=== PATIENT | male | born 1995 | race Caucasian/White ===

== ENCOUNTER 2017-03-14 14:54 | Emergency (ER) | payer BC, OTHER ==
[2017-03-14 15:28] VITALS: BP 136/61
--- NOTE | 2017-03-14 15:58 | EDM.PDOC ---
ED HPI GENERAL MEDICAL PROBLEM - General Chief Complaint: General Stated Complaint: INHALE CHEMICALS Time Seen by Provider: 03/14/17 15:53 Source of Information: Reports: Patient History Limitations: Reports: No Limitations - History of Present Illness INITIAL COMMENTS - FREE TEXT/NARRATIVE: HISTORY AND PHYSICAL: [] 21-year-old male presents to ER after having an exposed to hydrochloric acid History of Present Illness: []Poison control has been notified chest x-ray supported cares were recommended Has some burning sensation to his nose, is improved while waiting to be seen Review of Systems: As per history of present illness and below otherwise all systems reviewed and negative. Past medical history: As per history of present illness and as reviewed below otherwise noncontributory. Surgical history: As per history of present illness and as reviewed below otherwise noncontributory. Social history: No reported history of drug or alcohol abuse. Family history: As per history of present illness and as reviewed below otherwise noncontributory. Physical exam: HEENT: Atraumatic, normocehpalic, pupils reactive, negative for conjunctival pallor or scleral icterus, mucous membranes moist, throat clear, neck supple, nontender, trachea midline. Lungs: Clear to auscultation, breath sounds equal bilaterally, chest non tender. Heart: S1S2, regular, negative for clicks, rubs, or JVD. Abdomen: Soft, nondistended, nontender. Negative for masses or hepatossplenmegaly. Negative for costovertebral tenderness. Pelvis: Stable nontender. Genitourinary: Deferred. Rectal: Deferred Extremities: Atraumatic, negative for cords or calf pain. Neurovascular unremarkable. Neuro: Awake, alert, oriented. Cranial nerves II through XII unremarkable. Cerebellum unremarkable. Motor and sensory unremarkable throughout. Exam nonfocal. Discussed with the patient his x-ray that is clear no pneumonia and no signs of any infiltrates or excess fluid Diagnostics: [Chest x-ray clear ] Therapeutics: [] Impression: [Chemical exposure] Plan: [Discharged to home Follow up with your primary care provider Any adverse reaction occurs return immediately for reevaluation] Definitive disposition and diagnosis as appropriate pending reevaluation and review of above. - Related Data Allergies Allergy/AdvReac Type Severity Reaction Status Date / Time peanuts Allergy rashes Uncoded 03/14/17 15:22 Home Meds: Home Meds . [No Known Home Meds] 12/21/14 [History] Past Medical History - Past Health History Medical/Surgical History: Denies Medical/Surgical History Social & Family History - Family History Family Medical History: Noncontributory - Tobacco Use Smoking Status *Q: Never Smoker - Recreational Drug Use Recreational Drug Use: No ED ROS GENERAL - Review of Systems Review Of Systems: ROS reveals no pertinent complaints other than HPI. ED EXAM, GENERAL - Physical Exam Exam: See Below (see dictation) Course - Vital Signs Last Recorded V/S: Last Vital Signs Temp 36.6 C 03/14/17 14:54 Pulse 67 03/14/17 14:54 Resp 18 03/14/17 14:54 BP 136/61 03/14/17 14:54 Pulse Ox 95 03/14/17 14:54 - Orders/Labs/Meds Orders: Active Orders 24 hr Category Date Time Status Chest 2V [CR] Stat Exams 03/14/17 15:51 Taken Departure - Departure Time of Disposition: 17:09 Disposition: Home, Self-Care 01 Condition: Good Clinical Impression: Exposure to chemical inhalation - Discharge Information Referrals: PCP,None [Primary Care Provider] - Forms: ED Department Discharge Additional Instructions: The following information is given to patients seen in the emergency department who are being discharged to home. This information is to outline your options for follow-up care. We provide all patients seen in our emergency department with a follow-up referral. The need for follow-up, as well as the timing and circumstances, are variable depending upon the specifics of your emergency department visit. If you don't have a primary care physician on staff, we will provide you with a referral. We always advise you to contact your personal physician following an emergency department visit to inform them of the circumstance of the visit and for follow-up with them and/or the need for any referrals to a consulting specialist. The emergency department will also refer you to a specialist when appropriate. This referral assures that you have the opportunity for followup care with a specialist. All of these measure are taken in an effort to provide you with optimal care, which includes your followup. Under all circumstances we always encourage you to contact your private physician who remains a resource for coordinating your care. When calling for followup care, please make the office aware that this follow-up is from your recent emergency room visit. If for any reason you are refused follow-up, please contact the [facility] emergency department at and asked to speak to the emergency department charge nurse. All of his recommended - My Orders Last 24 Hours: My Active Orders 03/14/17 15:51 Chest 2V [CR] Stat - Assessment/Plan Last 24 Hours: My Active Orders 03/14/17 15:51 Chest 2V [CR] Stat
--- NOTE | 2017-03-15 14:42 | CR ---
EXAM DATE: 03/14/17 PATIENT'S AGE: 21 Patient: LD [facility] Facility: [place], [place] Site . Site : 1995 Study: XRay Chest [id number] 4:34:23 PM Ordering Physician: Doctor Espinoza Final Report: INDICATION: Pain/shortness of breath. Got sprayed by chemical at work. TECHNIQUE: Chest radiograph 2 views COMPARISON: None FINDINGS: Cardiovascular and mediastinum: The cardiac silhouette is normal in appearance and size. Mediastinum is within normal limits. Lungs and pleural spaces: Both lungs are unremarkable in appearance. No sign of pleural effusion. No pneumothorax is seen. Bones and soft tissues: No significant findings. IMPRESSION: 1. No acute cardiopulmonary disease seen. Dictated by: Heri Corey MD @ 03/14/2017 17:00:04 (Electronic Signature) Report Signed by Proxy. LENIN
== END 2017-03-14 17:46 | disposition home or self-care (01) ==
LOC: MW.ED 14:54
DX: Z77.098 Contact with and (suspected) exposure to other hazardous, chiefly nonmedicinal, chemicals (principal); Z91.010 Allergy to peanuts
CPT/HCPCS: 71020; 71020-26; 99282; 99283